=== PATIENT | male | born 1995 | race Caucasian/White ===

== ENCOUNTER 2024-05-09 16:23 | Emergency (ER) | payer MEDICARE, SELFPAY ==
[2024-05-09 16:50] VITALS: BP 144/87; PULSE 62; RESP 20; TEMP 36.9; O2SAT 95; BMI 36.1
[2024-05-09 16:58] LABS: Apearance,Urine Clear (Clear); Blood, Urine Negative (Negative); Color,Urine Yellow (Yellow); Glucose,Urine (UA) Negative (Negative); Ketones,Urine TRACE (Negative); Protein,Urine Negative (Negative); Specific Gravity, Urine 1.025 (1.005-1.030)
[2024-05-09 16:59] LABS: Bilirubin,Urine Negative (Negative)
[2024-05-09 17:00] LABS: UTC Leukocyte Esterase,Urine Negative (Negative); UTC Nitrate,Urine Negative (Negative); Urobilinogen,Urine 4 EU/dl (0.2)
--- NOTE | 2024-05-09 17:12 | EXP.UTC ---
Discharge Plan Referrals Follow up/Referrals: Provider,Referral, [Primary Care Provider] - See instructions Activity Restrictions/Add. Instructions Additional Instructions/Restrictions: Follow up with your Family Doctor the first of next week to request the results of your testing here today and treatment if needed Avoid sex until testing back and negative Return if needed Clinical Impressions Clinical Impression: Penile lesion Instructions Patient Instructions: Chlamydia: The Silent STD, How to Detect and Treat STDs Print Language Print Language: Albanian Discharge ED Provider: Aixa Merritt [facility] [place] HPI General Stated complaint: penis painful Mode of Arrival: Ambulatory Source of Information: Patient Limitations: No Limitations Time Seen by Provider: 05/09/24 17:12 Description of Symptoms (Recalled from Triage Doc. by RN): PATIENT C/O BURNING AND DISCHARGE TO GENITAL AREA SINCE THIS MORNING HEENT Symptoms (Recalled from RN notes): No Resp Symptoms (Recalled from RN notes): No Skin Symptoms (Recalled from RN notes): No MS Symptoms (Recalled from RN notes): No Functional Status (Recalled from RN notes): WNL History of Present Illness Provider Complaint: Patient states that him and his woman has been having lots of sex 3-4 times a day States not sure if he may have a friction burn on his penis but he has a open sore there and wanted to get it checked States after having sex earlier today he noticed a greenish colored discharge not sure if it was from him or his woman Related Data Allergies Allergy/AdvReac Type Severity Reaction Status Date / Time No Known Allergies Allergy Verified 05/09/24 17:11 Worker's Comp Is this a Worker's Comp case?: No [facility] Disclaimer: The information contained in this section may have been updated after the patient was seen, as this information can be updated by other users. Medical History (Updated 05/09/24 @ 17:18 by Aixa Merritt APRN) Anxiety Migraine Social History Smoking Status: Unknown if ever smoked alcohol intake: never current occupational status: other Travel in the last 8 weeks: None ROS Obtained: Yes All systems reviewed & no additional complaints except as documented and Yes Systems reviewed as appropriate & no additional complaints except as documented Constitutional Constitutional: Reports system reviewed and no additional complaints, except as documented and Reports as per HPI ENT Ears, Nose, Mouth, and Throat: Reports system reviewed and no additional complaints, except as documented and Reports as per HPI Cardiovascular Cardiovascular: Reports system reviewed and no additional complaints, except as documented and Reports as per HPI Respiratory Respiratory: Reports system reviewed and no additional complaints, except as documented and Reports as per HPI Gastrointestinal Gastrointestingal: Reports system reviewed and no additional complaints, except as documented and as per HPI Genitourinary Male Genitourinary: Reports genital lesions (open wound on left side of penis no drainage), Reports penile discharge, Denies urinary frequency and Denies urinary urgency Physical Exam General General appearance: alert and in no apparent distress ENT ENT exam: Present mucous membranes moist Neck Neck exam: Present normal inspection and full ROM Chest Chest inspection: Present normal inspection and symmetric chest wall rise Respiratory Respiratory exam: Present normal lung sounds bilaterally; Absent respiratory distress or wheezes Cardiovascular Cardiovascular exam: Present regular rate, normal rhythm and normal heart sounds Abdominal Exam Abdominal exam: Present soft and normal bowel sounds; Absent distention or tenderness exam: Present other Expanded Exam exam: Present lesions (small open lesion noted on left side of penis no drainage reports discharge this morning no swelling no obvious discharge); Absent penile swelling Male Image: 1. open lesion noted Neurological Exam Neurological exam: Present alert, oriented X3 and normal gait Medical Decision Making Medical Records Screening: Per USPSTF and CDC recommendations, given the prevalence of disease in our region, it is our hospital?s policy to screen for HIV and viral Hepatitis for all patients aged 18 and over and those with ongoing risk factors. Atul Inquiry Pt receiving controlled substance: No Atul was queried for this patient: No Vital Signs: 05/09/24 16:50 Temperature 98.4 F Temperature Source Oral Pulse Rate [Left Brachial] 62 Respiratory Rate 20 Blood Pressure [Left Arm] 144/87 H Blood Pressure Mean [Left Arm] 106 Blood Pressure Source [Left Arm] Automatic Cuff Blood Pressure Position [Left Arm] Sitting 02 Sat by Pulse Oximetry 95 Oxygen Delivery Method Room Air Lab Data Lab Results 05/09/24 16:46: Urine Color Yellow, Urine Appearance Clear, Urine pH 7.0, Ur Specific [place] 1.025, Urine Protein Negative, Urine Glucose (UA) Negative, Urine Ketones Trace, Urine Blood Negative, Urine Nitrate Negative, Urine Bilirubin Negative, Urine Urobilinogen 4, Ur Leukocyte Esterase Negative Orders (Tests/Meds): ORDERS Category Date Time Status HSV 1/2 PCR, (BLOOD/SWAB) Routine Lab 05/09/24 17:01 Ordered
[2024-05-09 17:20] VITALS: BP 144/87; PULSE 62; RESP 20; TEMP 36.9; O2SAT 95
[2024-05-12 19:09] LABS: Neisseria gonorrhoeae, NAA Negative (Negative)
[2024-05-14 07:54] LABS: HSV-1 DNA Negative (Negative); HSV-2 DNA Negative (Negative)
== END 2024-05-09 17:26 | disposition home or self-care (01) ==
LOC: UTC 16:31
PROVIDERS: Emergency Provider Nurse Practitioner
DX: E29.1 Testicular hypofunction (principal)
CPT/HCPCS: 81003; 87491; 87529; 87591; 99213; G0381

== ENCOUNTER 2024-06-04 08:50 | Emergency (ER) | payer MEDICARE, SELFPAY ==
[2024-06-04 09:10] VITALS: BP 144/112; PULSE 79; RESP 16; TEMP 36.8; O2SAT 99; BMI 35.2
--- NOTE | 2024-06-04 09:10 | PC.NURSE ---
DR FENG AT BEDSIDE
--- NOTE | 2024-06-04 09:24 | XR_ITS ---
FINAL REPORT CLINICAL HISTORY: cough, left cp, wheezing FINDINGS: CHEST 2 VIEWS PA AND LATERAL The heart is normal in size. The mediastinum is unremarkable. There is bronchial wall thickening consistent with bronchitis. There is no pneumothorax. IMPRESSION: Bronchial wall thickening consistent with bronchitis. Reviewed, Interpreted and Dictated by Sukh Yap III, MD Transcribed by Katie Taylor Authenticated and [facility]
[2024-06-04 09:30] VITALS: BP 105/88; PULSE 68; O2SAT 95
[2024-06-04] MEDS: BENZONATATE 100MG CAPSULE 100 MG PO (09:35)
[2024-06-04] MEDS: DEXAMETHASONE 4MG TABLET 10 MG PO (09:35)
[2024-06-04] MEDS: IPRATROPIUM/ALBUTEROL 3 ML NEB IH (09:35)
[2024-06-04] MEDS: KETOROLAC 30MG/ML VIAL 30 MG IM (09:35)
--- NOTE | 2024-06-04 10:05 | HMH.EDGENADL ---
Discharge Plan Disposition Patient Disposition: Home, Self-Care Prescriptions Prescriptions: New ibuprofen 800 mg tablet 800 mg PO TID PRN (Reason: pain) 7 Days Qty: 20 0RF benzonatate 100 mg capsule 100 mg PO TID PRN (Reason: cough) 5 Days Qty: 20 0RF albuterol sulfate 90 mcg/actuation HFA aerosol inhaler 4 inh inhalation Q4H PRN (Reason: shortness of breath or wheezing) Qty: 8.5 0RF Rx Instructions: 4 puffs every 4 hours for 48 hours then as needed for shortness of breath or wheezing following Referrals Follow up/Referrals: Provider,MD Kenzie [Primary Care Provider] - See instructions Autumn Ramos MD [Physician] - See instructions Activity Restrictions/Add. Instructions Additional Instructions/Restrictions: Your symptoms today are consistent with a viral upper respiratory infection causing an asthma exacerbation I recommend that you follow-up with our senior web services developer to discuss chronic management of your asthma. Return with any significant shortness of breath or other concerns. There is no evidence of a bacterial infection today that would warrant antibiotics as discussed. Clinical Impressions Clinical Impression: Asthma exacerbation, URI (upper respiratory infection), Strain of chest wall Print Language Print Language: Danish Discharge ED Provider: Yue Wade General Adult HPI General Chief complaint: Upper Respiratory Infection Stated complaint: soa, cough, fatigue Time Seen by Provider: 06/04/24 09:09 Mode of Arrival: Ambulatory Source of Information: Patient Limitations: No Limitations Description of Symptoms (Recalled from ER Triage Doc. by RN): pt c/o a productive cough with brownish-green sputum, SOA, and rib pain with coughing. pt states this has been ongoing x3d. pt denies chest pain. History of Present Illness HPI narrative: Patient is a 28-year-old with history of sports or exercise-induced asthma who presents today with 3 days of cough and what he describes as his throat closing up in the middle of coughing spells and some wheezing and some left-sided chest discomfort associated with cough. No exertional symptoms no diaphoresis no history of coronary artery disease no significant shortness of breath at the moment. No fevers. He has had increasing changes to sputum. Related Data Previous Rx's ?Medication ?Instructions ?Recorded albuterol sulfate 90 mcg/actuation 4 inh inhalation Q4H PRN shortness 06/04/24 aerosol inhaler of breath or wheezing #8.5 grams benzonatate 100 mg capsule 100 mg PO TID PRN cough 5 days #20 06/04/24 caps ibuprofen 800 mg tablet 800 mg PO TID PRN pain 7 days #20 06/04/24 tabs Allergies Allergy/AdvReac Type Severity Reaction Status Date / Time No Known Allergies Allergy Verified 06/04/24 09:36 [facility] Disclaimer: The information contained in this section may have been updated after the patient was seen, as this information can be updated by other users. Medical History (Updated 06/04/24 @ 11:03 by Yue Wade MD) Anxiety Migraine Social History (Updated 05/09/24 @ 17:18 by Aixa Merritt APRN) Smoking Status: Never smoker alcohol intake: never current occupational status: other Travel in the last 8 weeks: None ROS Obtained: Yes All systems reviewed & no additional complaints except as documented Physical Exam General General appearance: alert and in no apparent distress Chest Chest inspection: Present normal inspection; Absent symmetric chest wall rise Respiratory Respiratory exam: Present normal lung sounds bilaterally and other (Oxygen saturation is 99% room air normal respiratory effort speaking in full sentences); Absent respiratory distress, wheezes or stridor Cardiovascular Cardiovascular exam: Present regular rate and normal rhythm Neurological Exam Neurological exam: Present alert and oriented X3 Medical Decision Making Medical Records Screening: Per USPSTF and CDC recommendations, given the prevalence of disease in our region, it is our hospital?s policy to screen for HIV and viral Hepatitis for all patients aged 18 and over and those with ongoing risk factors. Atul Inquiry Pt receiving controlled substance: No Vital Signs: 06/04/24 09:10 06/04/24 09:30 Temperature 98.3 F Temperature Source Oral Pulse Rate 68 Pulse Rate [Left] 79 Respiratory Rate 16 Blood Pressure 105/88 L Blood Pressure [Right Arm] 144/112 H Blood Pressure Mean [Right Arm] 122 Blood Pressure Source [Right Arm] Automatic Cuff Blood Pressure Position [Right Arm] Sitting 02 Sat by Pulse Oximetry 99 95 Oxygen Delivery Method Room Air Orders (Tests/Meds): ED MEDICATIONS Generic Name Dose Route Start Last Admin Trade Name Freq PRN Reason Stop Dose Admin Benzonatate 100 mg 06/04/24 09:30 06/04/24 09:35 Benzonatate 100mg Capsule PO 07/04/24 09:29 100 mg ONCE KRYSTAL Administration Discontinued Medications Generic Name Dose Route Start Last Admin Trade Name Grace PRN Reason Stop Dose Admin Albuterol/Ipratropium 3 ml 06/04/24 09:24 06/04/24 09:35 Ipratropium/Albuterol 3 Ml Neb IH 06/04/24 09:25 3 ml ONCE ONE Administration Dexamethasone 10 mg 06/04/24 09:24 06/04/24 09:35 Dexamethasone 4mg Tablet PO 06/04/24 09:25 10 mg ONCE ONE Administration Ketorolac Tromethamine 30 mg 06/04/24 09:24 06/04/24 09:35 Ketorolac 30mg/Ml Vial IM 06/04/24 09:25 30 mg ONCE ONE Administration ORDERS Category Date Time Status Chest XR 2 view (NOT portable) [XR chest 2V] Stat Exams 06/04/24 09:24 Taken Medical Decision Narrative: Patient was above history and physical. Respiratory effort is normal two-view chest x-ray was performed to rule out pneumonia which I personally interpreted shows no acute cardiopulmonary emergency or abnormality such as a lobar pneumonia. Additionally patient is outside of any window for intervention from a viral standpoint so no need to determine the exact etiology of this. Chest x-ray was performed which I personally interpreted shows no dense consolidation or acute abnormalities. On reassessment patient felt much better particular the breathing treatment saying that his throat opened up and the pressure is significantly improved. He likely has chronic asthma and has an asthma exacerbation with his reactivity to beta agonist inhaler and with his history. Steroids also were given with improvement. Symptomatic medications prescribed patient advised to follow-up with pulmonology and discharged in stable condition with return precautions emphasized. Critical Care Critical Care Time Critical Care Time: No
[2024-06-04 11:03] VITALS: BP 105/88; PULSE 68; RESP 16; TEMP 36.8; O2SAT 95
== END 2024-06-04 11:07 | disposition home or self-care (01) ==
LOC: UTC 08:56 → ER 09:00
PROVIDERS: Emergency Provider Student in an Organized Health Care Education/Training Program
DX: J45.901 Unspecified asthma with (acute) exacerbation (principal); J06.9 Acute upper respiratory infection, unspecified; S29.011A Strain of muscle and tendon of front wall of thorax, initial encounter; R05.9 Cough, unspecified; R06.02 Shortness of breath; R07.82 Intercostal pain; R09.3 Abnormal sputum
CPT/HCPCS: 71046; 96372; 99283; J1885; J7620; J8540

== ENCOUNTER 2024-08-08 00:35 | Emergency (ER) | payer MEDICARE, SELFPAY ==
[2024-08-08 00:35] VITALS: BP 148/99; PULSE 106; RESP 16; TEMP 36.8; O2SAT 96; BMI 35.4
--- NOTE | 2024-08-08 00:37 | XR_ITS ---
PROCEDURE INFORMATION: Exam: XR Chest Exam date and time: 08/08/2024 12:33 AM Age: 28 years old Clinical indication: Cough; Additional info: Cp SOA flu like symptoms TECHNIQUE: Imaging protocol: Radiologic exam of the chest. Views: 2 views. COMPARISON: CR XR CHEST 2V 06/04/2024 9:22 AM FINDINGS: Lungs: No evidence of acute pulmonary disease or infiltrates Pleural spaces: No large effusion or pneumothorax. Heart/Mediastinum: No evidence of mediastinal widening or cardiac silhouette enlargement; the mediastinum and heart appear within normal limits for contour and size. Bones/joints: No evidence of acute osseous abnormalities within the visualized portions of the thoracic spine and ribs. Osseous structures appear appropriate for patient age. IMPRESSION: No dense parenchymal consolidation, pleural effusion, or pneumothorax.
--- NOTE | 2024-08-08 00:41 | PC.NURSE ---
Report given to Allison DONOVAN
[2024-08-08 00:42] LABS: Coronavirus 19, PCR Not Detected (NotDetected); Influenza B, PCR Not Detected (NotDetected)
[2024-08-08] MEDS: ACETAMINOPHEN 500MG TAB 1000 MG PO (00:47)
[2024-08-08] MEDS: ONDANSETRON 4MG/2ML VIAL 4 MG IV (00:47)
[2024-08-08] MEDS: KETOROLAC 30MG/ML VIAL 30 MG IV (00:48)
--- NOTE | 2024-08-08 00:55 | ED_ITS ---
Discharge Plan Disposition Patient Disposition: Home, Self-Care Prescriptions Prescriptions: New methocarbamol 500 mg tablet 500 mg PO Q6H PRN (Reason: pain) Qty: 30 0RF benzonatate 100 mg capsule 100 mg PO Q6H PRN (Reason: cough) Qty: 30 0RF No Action ibuprofen 800 mg tablet 800 mg PO TID PRN (Reason: pain) 7 Days Qty: 20 0RF benzonatate 100 mg capsule 100 mg PO TID PRN (Reason: cough) 5 Days Qty: 20 0RF albuterol sulfate 90 mcg/actuation HFA aerosol inhaler 4 inh inhalation Q4H PRN (Reason: shortness of breath or wheezing) Qty: 8.5 0RF Rx Instructions: 4 puffs every 4 hours for 48 hours then as needed for shortness of breath or wheezing following Referrals Follow up/Referrals: Provider,Referral, MD [Primary Care Provider] - See instructions Activity Restrictions/Add. Instructions Additional Instructions/Restrictions: Please follow-up with your primary care provider. Please return to the emergency department if you develop any new or worsening symptoms or become conc erned for your health. Clinical Impressions Clinical Impression: Influenza A, Asthma exacerbation Print Language Print Language: Mongolian Discharge ED Provider: Jason Perez General Adult HPI General Chief complaint: Shortness of Breath/Dyspnea Stated complaint: Cough, congestion Time Seen by Provider: 08/08/24 00:37 Mode of Arrival: EMS Source of Information: Patient Limitations: No Limitations Description of Symptoms (Recalled from ER Triage Doc. by RN): Pt complaining of SOA, cough, and chills for 4 days. Multiple family members in home positive for flu. History of Present Illness HPI narrative: 28-year-old male with history of exercise-induced asthma presents for worsening cough congestion shortness of breath subjective fevers at home for the last 4 days. Multiple members of the family at home have the flu. He presents tonight via EMS because he got severely winded with right chest pain with coughing. Related Data Previous Rx's ?Medication ?Instructions ?Recorded albuterol sulfate 90 mcg/actuation 4 inh inhalation Q4H PRN shortness 06/04/24 aerosol inhaler of breath or wheezing #8.5 grams benzonatate 100 mg capsule 100 mg PO TID PRN cough 5 days #20 06/04/24 caps ibuprofen 800 mg tablet 800 mg PO TID PRN pain 7 days #20 06/04/24 tabs benzonatate 100 mg capsule 100 mg PO Q6H PRN cough #30 caps 08/08/24 methocarbamol 500 mg tablet 500 mg PO Q6H PRN pain #30 tabs 08/08/24 Allergies Allergy/AdvReac Type Severity Reaction Status Date / Time No Known Allergies Allergy Verified 06/04/24 09:36 [facility] Disclaimer: The information contained in this section may have been updated after the patient was seen, as this information can be updated by other users. Medical History (Updated 08/08/24 @ 02:06 by Jason Perez MD) Anxiety Migraine Social History (Updated 05/09/24 @ 17:18 by Aixa Merritt APRN) Smoking Status: Never smoker alcohol intake: never current occupational status: other Travel in the last 8 weeks: None ROS Obtained: Yes All systems reviewed & no additional complaints except as documented Physical Exam General General appearance: alert and in no apparent distress Head Head exam: atraumatic and normocephalic Eye Eye exam: Present normal appearance, PERRL and EOMI ENT ENT exam: Present normal oropharynx and normal external ear exam Neck Neck exam: Present normal inspection and full ROM Chest Chest inspection: Present normal inspection and symmetric chest wall rise; Absent tenderness Respiratory Respiratory exam: Present normal lung sounds bilaterally; Absent respiratory distress Cardiovascular Cardiovascular exam: Present regular rate and normal rhythm Abdominal Exam Abdominal exam: Present soft; Absent distention, tenderness or guarding Extremities Exam Extremities exam: Present normal inspection; Absent edema or joint swelling Back Exam Back exam: Present normal inspection; Absent tenderness Neurological Exam Neurological exam: Present alert and oriented X3; Absent motor sensory deficit Psychiatric Psychiatric exam: Present normal affect and normal mood Skin Skin exam: Present warm, dry and normal color Lymphatic Lymphatic Findings: no adenopathy Medical Decision Making Medical Records Medical records reviewed: Yes I reviewed the patient's medical records. Screening: Per USPSTF and CDC recommendations, given the prevalence of disease in our region, it is our hospital?s policy to screen for HIV and viral Hepatitis for all patients aged 18 and over and those with ongoing risk factors. Atul Inquiry Pt receiving controlled substance: No Atul was queried for this patient: No Vital Signs: 08/08/24 00:35 08/08/24 01:00 08/08/24 01:19 Temperature 98.3 F Temperature Source Oral Pulse Rate 78 82 Pulse Rate [Right Radial] 106 H Respiratory Rate 16 22 23 Blood Pressure 133/94 H 133/94 H Blood Pressure [Right Arm] 148/99 H Blood Pressure Mean [Right Arm] 115 Blood Pressure Source Automatic Cuff Blood Pressure Source [Right Arm] Automatic Cuff 02 Sat by Pulse Oximetry 96 93 L 93 L Oxygen Delivery Method Room Air Room Air Lab Data Lab results reviewed: Yes I reviewed the patient's lab results. Lab Results 08/08/24 00:35: SARS-CoV-2 (PCR) Not detected, Influenza A Untype (PCR) Detected A, Influenza Type B (PCR) Not detected Orders (Tests/Meds): ED MEDICATIONS Generic Name Dose Route Start Last Admin Trade Name Freq PRN Reason Stop Dose Admin Albuterol Sulfate 2 puff 08/08/24 01:49 08/08/24 02:01 Albuterol-Hfa 90mcg/Puff Inhaler 8gm IH 09/07/24 01:48 1 puff Q4HP PRN Administration Shortness Of Breath Dexamethasone 10 mg 08/08/24 02:06 Dexamethasone 4mg Tablet PO 08/08/24 02:07 ONCE ONE Discontinued Medications Generic Name Dose Route Start Last Admin Trade Name Freq PRN Reason Stop Dose Admin Acetaminophen 1,000 mg 08/08/24 00:37 08/08/24 00:47 Acetaminophen 500mg Tab PO 08/08/24 00:38 1,000 mg ONCE ONE Administration Ketorolac Tromethamine 30 mg 08/08/24 00:37 08/08/24 00:48 Ketorolac 30mg/Ml Vial IV 08/08/24 00:38 30 mg ONCE ONE Administration Miscellaneous 1 unit 08/08/24 01:49 08/08/24 02:01 Aerochamber/Optihaler MC 08/08/24 01:50 1 unit ONCE ONE Administration Ondansetron HCl 4 mg 08/08/24 00:38 08/08/24 00:47 Ondansetron 4mg/2ml Vial IV 08/08/24 00:39 4 mg ONCE ONE Administration ORDERS Category Date Time Status CXR 2 view (NOT portable) [XR chest 2V] Stat Exams 08/08/24 00:37 Completed HIV Combo Routine Lab 08/08/24 00:42 Ordered Hepatitis C Ab Qual. W/ RFX Routine Lab 08/08/24 00:42 Ordered Rapid PCR Covid and Flu A/B Stat Lab 08/08/24 00:35 Completed Tissue Perfus/Sepsis Re-Eval Sepsis Re-Evaluation Performed: Yes Date Performed: 08/08/24 Time Performed: 02:06 Medical Decision Narrative: 28-year-old male with history of exercise-induced asthma presents via EMS for cough congestion fevers at home, multiple flu exposures.. History was obtained via interactive discussion with patient, chart review, EMS. On arrival, patient is [afebrile, hemodynamically stable, satting appropriately, alert, oriented x4, GCS 15], moving all extremities spontaneously. Full physical exam performed and significant for clear lungs bilaterally after EMS DuoNeb. Differential includes but is not limited to flu, pneumonia pneumothorax musculoskeletal rib pain. Patient was given DuoNeb and IV fluid by EMS, given Tylenol Toradol and Zofran here in ED for symptomatic management and correction of underlying abnormalities. Workup initiated including 2 view chest x-ray, COVID flu swab. On re-evaluation, patient [remains afebrile, HD stable.] Now with trace wheezing bilaterally. Laboratory workup independently interpreted by me and significant for positive influenza A. Imaging independently interpreted by me and significant for clear lungs bilaterally without focal opacity or evidence of rib fracture or pneumothorax. See radiology read for full review of final results. Initiation of Tamiflu was considered, but deemed unnecessary due to 4 days of symptom. Given patient history, exam and workup, patient's presentation most likely represents acute influenza infection with mild asthma exacerbation. Patient was given a dose of Decadron in the ER and discharged with a albuterol inhaler. He was given strict return precautions. Patient was discharged in stable condition. Patient flagged positive for sepsis. However, no indication of acute bacterial infection, no indication for IV antibiotics or IV fluids at this time. Procedures Risk/Benefits of Procedure(s) Were Explained: Yes Critical Care Critical Care Time Critical Care Time: No
[2024-08-08 01:00] VITALS: BP 133/94; PULSE 78; RESP 22; O2SAT 93
[2024-08-08 01:19] VITALS: BP 133/94; PULSE 82; RESP 23; O2SAT 93
--- NOTE | 2024-08-08 01:20 | PC.NURSE ---
Pt sitting up in bed on phone. No needs voiced at this time.
[2024-08-08 01:39] LABS: Influenza A, PCR Detected (NotDetected)
[2024-08-08] MEDS: ALBUTEROL-HFA 90MCG/PUFF INHALER 8GM 2 PUFF IH (02:01)
[2024-08-08] MEDS: AEROCHAMBER/OPTIHALER 1 UNIT MC (02:01)
[2024-08-08] MEDS: DEXAMETHASONE 4MG TABLET 10 MG PO (02:08)
[2024-08-08 02:11] VITALS: BP 137/96; PULSE 73; RESP 20; TEMP 36.8; O2SAT 96
== END 2024-08-08 02:11 | disposition home or self-care (01) ==
PROVIDERS: Emergency Provider Emergency Medicine
DX: J10.1 Influenza due to other identified influenza virus with other respiratory manifestations (principal); J45.901 Unspecified asthma with (acute) exacerbation; R06.02 Shortness of breath; R05.9 Cough, unspecified; R50.9 Fever, unspecified; R09.81 Nasal congestion; R07.89 Other chest pain; Z20.828 Contact with and (suspected) exposure to other viral communicable diseases
CPT/HCPCS: 71046; 87636; 96374; 96375; 99283; J1885; J2405; J8540

== ENCOUNTER 2024-09-17 13:50 | Outpatient (CLI) | payer MEDICARE, SELFPAY ==
[2024-09-17 18:58] LABS: Basophils % 0.2 % (0.1-2.0); Eosinophils # 0.1 K/mm3 (0.0-0.4); Eosinophils % 2.1 % (0.1-12.0); Hemoglobin 15.1 g/dL (14.1-18.0); Lymphocytes # 1.8 K/mm3 (0.7-4.5); Lymphocytes % 32.8 % (10-50); Mean Corpuscular HGB Conc 34.3 g/dL (31.8-35.4); Mean Corpuscular Hemoglobin 29.3 pg (27.0-31.2); Mean Corpuscular Volume 85.4 fl (80-94); Mean Platelet Volume 11.1 fl (7.4-10.4); Monocytes # 0.5 K/mm3 (0.1-1.0); Monocytes % 8.4 % (1.7-9.3); Neutrophils % 56.3 % (37.0-80.0); Platelet Count 216 K/mm3 (142-424); Red Blood Count 5.15 M/mm3 (4.60-6.20); White Blood Count 5.4 K/mm3 (4.8-10.8)
[2024-09-17 19:46] LABS: Albumin Level 4.7 g/dl (3.5-5.0); Chloride 106 mmol/L (98-107); Sodium 139 mmol/L (136-145)
[2024-09-17 19:47] LABS: Potassium 4.4 mmoL/L (3.5-5.1)
[2024-09-17 19:49] LABS: Alanine Aminotransferase 45 U/L (12-78); Albumin/Globulin Ratio 1.9 (1.1-1.8); Alkaline Phosphatase 83 U/L (38-126); Anion Gap 12.4 mEq/L (5-15); Aspartate Amino Transferase 32 U/L (17-59); Bilirubin,Total 0.4 mg/dl (0.2-1.3); Blood Urea Nitrogen 9 mg/dl (9-20); Carbon Dioxide 25 mmol/L (22.0-30.0); Cholesterol 177 mg/dl (140-200); Estimated Glomerular Filt Rate 114 ml/min (>60); GFR (African American) 138 ML/MIN (>60); Globulin 2.5 g/dL (1.3-3.2); Total Protein,Serum 7.2 g/dl (6.3-8.2); Triglycerides 116 mg/dl (30-150); VLDL Cholesterol 23 mg/dL (0-40)
[2024-09-17 19:50] LABS: Calcium 9.7 mg/dl (8.4-10.2); Glucose 76 mg/dl (74-100); HDL Cholesterol 44 mg/dl (40-60)
[2024-09-17 20:58] LABS: 25-OH Vitamin D, Total 27.1 ng/mL (30-100)
== END 2024-09-17 23:59 | disposition home or self-care (01) ==
LOC: LAB.DROPOF 09-18 13:36
PROVIDERS: PCP Family Medicine; Visit Provider Family Medicine
DX: Z00.00 Encounter for general adult medical examination without abnormal findings (principal); R53.83 Other fatigue; R63.2 Polyphagia; Z13.1 Encounter for screening for diabetes mellitus; R79.9 Abnormal finding of blood chemistry, unspecified
CPT/HCPCS: 80053; 80061; 82306; 83036; 84443; 85025

== ENCOUNTER 2024-09-19 07:11 | Emergency (ER) | payer MEDICARE, SELFPAY ==
[2024-09-19 07:13] VITALS: BP 137/105; PULSE 101; O2SAT 95
--- NOTE | 2024-09-19 07:17 | XR_ITS ---
FINAL REPORT CLINICAL HISTORY: fall, knee pain COMPARISON: None FINDINGS: LEFT KNEE 3 views of the left knee were obtained. There is no acute fracture or dislocation. There are postoperative changes from ACL reconstruction. Mild degenerative changes are noted. There is no evidence of joint effusion. IMPRESSION: No acute findings. Reviewed, Interpreted and Dictated by Nidia Melgar MD Transcribed by Yesenia Mendenhall Authenticated and [facility]
--- NOTE | 2024-09-19 07:18 | HMH.EDGENADL ---
Discharge Plan Disposition Patient Disposition: Home, Self-Care Condition: Fair Prescriptions Prescriptions: New naproxen sodium 550 mg tablet 550 mg PO BID PRN (Reason: pain) Qty: 14 0RF acetaminophen 500 mg capsule 1,000 mg PO Q6H PRN (Reason: pain) Qty: 30 0RF methocarbamol 1,000 mg tablet 1,000 mg PO Q8H PRN (Reason: muscle spasm) Qty: 30 0RF lidocaine 5 % adhesive patch,medicated 1 patch topical DAILY Qty: 15 0RF Rx Instructions: leave on most painful area for up to 12 hrs No Action tizanidine 4 mg capsule 4 mg PO TID PRN (Reason: muscle spasticity) Qty: 30 0RF naproxen 500 mg tablet 500 mg PO BID PRN (Reason: pain) Qty: 60 1RF Referrals Follow up/Referrals: Julian Davison DO [Staff Physician] - See instructions Provider,Referral, [Referring] - See instructions Activity Restrictions/Add. Instructions Additional Instructions/Restrictions: Wear knee brace Clinical Impressions Clinical Impression: Injury of knee, left Instructions Patient Instructions: Sprain Print Language Print Language: Albanian Discharge ED Provider: Lilly Gifford General Adult HPI General Chief complaint: Extremity Injury, Lower Stated complaint: Left Knee pain Time Seen by Provider: 09/19/24 07:43 History of Present Illness HPI narrative: Patient is a 28-year-old with past medical history significant for prior ACL MCL reconstruction of the left knee without hardware who presents to the emergency department with left knee pain. Patient was working at his job when his knee was caught and he inverted it. Patient developed immediate sharp pain. He was able to ambulate on it afterwards. Symptoms improved with a warm bath. This morning patient's knee was more swollen than yesterday and he was having difficulty with ambulation. No fevers chills did not hit head or lose consciousness with the fall. Notes numbness tingling in his left foot Related Data Previous Rx's ?Medication ?Instructions ?Recorded naproxen 500 mg tablet 500 mg PO BID PRN pain #60 tabs 09/17/24 tizanidine 4 mg capsule 4 mg PO TID PRN muscle spasticity 09/17/24 #30 caps acetaminophen 500 mg capsule 1,000 mg (2 x 500 mg) PO Q6H PRN 09/19/24 pain #30 caps lidocaine 5 % topical patch 1 patch topical DAILY #15 ea 09/19/24 methocarbamol 1,000 mg tablet 1,000 mg PO Q8H PRN muscle spasm 09/19/24 #30 tabs naproxen sodium 550 mg tablet 550 mg PO BID PRN pain #14 tabs 09/19/24 Allergies Allergy/AdvReac Type Severity Reaction Status Date / Time No Known Allergies Allergy Verified 09/19/24 07:40 [facility] Disclaimer: The information contained in this section may have been updated after the patient was seen, as this information can be updated by other users. Medical History (Updated 09/19/24 @ 07:49 by Lilly Gifford MD) Back pain Asthma exacerbation Penile lesion URI (upper respiratory infection) Strain of chest wall Influenza A Anxiety Migraine Social History Smoking Status: Never smoker alcohol intake: never current occupational status: other Travel in the last 8 weeks: None Have you lived/traveled outside US in past 30 days?: No Contact w/someone who lives/traveled outside US past 30 days?: No Exposure to someone with infectious disease in past 14 days?: No Do you have a fever (greater than 100.4 F or 38 C)?: No Have you tested positive for COVID-19: No Exposed to someone with COVID-19 in past 14 days?: No Do you have a sore throat?: No Do you have a cough?: No Do you have any weakness?: No Do you have any diarrhea?: No Are you experiencing any unusual bleeding?: No Do you have any muscle aches/pain?: No Do you have any abdominal pain?: No Are you experiencing loss of taste or smell?: No ROS Obtained: Yes All systems reviewed & no additional complaints except as documented Physical Exam General General appearance: alert and in no apparent distress Head Head exam: atraumatic and normocephalic Eye Eye exam: Present normal appearance and PERRL ENT ENT exam: Present normal exam Neck Neck exam: Present normal inspection and full ROM Chest Chest inspection: Present normal inspection and symmetric chest wall rise Respiratory Respiratory exam: Absent respiratory distress or accessory muscle use Cardiovascular Cardiovascular exam: Present regular rate and normal rhythm Abdominal Exam Abdominal exam: Absent distention or tenderness Extremities Exam Extremities exam: Present tenderness (Left knee, mild prepatellar effusion, full range of motion of the left knee without erythema or warmth, neurovascularly intact distal to injury left lower extremity) and other (Left knee: negative anterior posterior drawer test, laxity with valgus stress) Neurological Exam Neurological exam: Present alert and oriented X3; Absent motor sensory deficit Medical Decision Making Medical Records Screening: Per USPSTF and CDC recommendations, given the prevalence of disease in our region, it is our hospital?s policy to screen for HIV and viral Hepatitis for all patients aged 18 and over and those with ongoing risk factors. Atul Inquiry Pt receiving controlled substance: No Vital Signs: 09/19/24 07:13 09/19/24 07:20 09/19/24 07:32 Temperature 98.1 F Temperature Source Oral Pulse Rate 101 H 77 Pulse Rate [Left] 79 Respiratory Rate 18 Blood Pressure 137/105 H 147/89 H Blood Pressure [Right Arm] 137/105 H Blood Pressure Mean 119 108 Blood Pressure Mean [Right Arm] 115 Blood Pressure Source [Right Arm] Automatic Cuff Blood Pressure Position [Right Arm] Sitting 02 Sat by Pulse Oximetry 95 96 98 Oxygen Delivery Method Room Air 09/19/24 07:49 Temperature Temperature Source Pulse Rate 66 Pulse Rate [Left] Respiratory Rate Blood Pressure 127/81 Blood Pressure [Right Arm] Blood Pressure Mean 90 Blood Pressure Mean [Right Arm] Blood Pressure Source [Right Arm] Blood Pressure Position [Right Arm] 02 Sat by Pulse Oximetry 95 Oxygen Delivery Method Orders (Tests/Meds): ED MEDICATIONS Discontinued Medications Generic Name Dose Route Start Last Admin Trade Name Freq PRN Reason Stop Dose Admin Acetaminophen 1,000 mg 09/19/24 07:18 09/19/24 07:25 Acetaminophen 500mg Tab PO 09/19/24 07:19 1,000 mg ONCE ONE Administration Lidocaine 1 each 09/19/24 07:18 09/19/24 07:25 Lidocaine 5% Transdermal Patch TP 09/19/24 07:19 1 each ONCE ONE Administration Methocarbamol 1,000 mg 09/19/24 07:19 09/19/24 07:25 Methocarbamol 500mg Tablet PO 09/19/24 07:20 1,000 mg ONCE ONE Administration Naproxen 500 mg 09/19/24 07:19 09/19/24 07:25 Naproxen 500mg Tablet PO 09/19/24 07:20 500 mg ONCE ONE Administration Ondansetron HCl 4 mg 09/19/24 08:16 09/19/24 08:18 Ondansetron 4mg Odt SL 09/19/24 08:17 4 mg ONCE ONE Administration Oxycodone HCl 5 mg 09/19/24 07:19 09/19/24 07:25 Oxycodone 5mg Immediate Release Tablet PO 09/19/24 07:20 5 mg ONCE ONE Administration ORDERS Category Date Time Status Knee XR left 3 views [XR knee LT 3V] Stat Exams 09/19/24 07:17 Completed Medical Decision Narrative: In summary, this 28-year-old male presents to the emergency department today with traumatic left knee pain. On initial evaluation patient is hemodynamically stable saturating appropriately on room air afebrile no acute. Differential diagnosis includes but is not limited to acute fracture dislocation tendon or ligamentous injury neurovascular injury. Based on these concerns, I ordered left knee x-ray. Lower suspicion for septic arthritis as no prior hardware in this knee no warmth or redness overlying knee. Intact sensation and PT and DP pulses distal to injury. EMILIA wnl ankle: 190/brachial: 140 low suspicion for arterial injury. Patient received naproxen Tylenol Robaxin lidocaine patch and oxycodone for treatment. XR personally interpreted demonstrates no acute fracture or dislocation. History exam most consistent with ligamentous injury. On reassessment has improvement of pain. Patient was placed in a knee immobilizer instructed to keep Dannie wrap to prevent swelling and multimodal pain management. Outpatient referral to orthopedic surgery provided. Critical Care Critical Care Time Critical Care Time: No
[2024-09-19 07:20] VITALS: BP 147/89; PULSE 77; O2SAT 96
[2024-09-19] MEDS: METHOCARBAMOL 500MG TABLET 1000 MG PO (07:25)
[2024-09-19] MEDS: OXYCODONE 5MG IMMEDIATE RELEASE TABLET 5 MG PO (07:25)
[2024-09-19] MEDS: NAPROXEN 500MG TABLET 500 MG PO (07:25)
[2024-09-19] MEDS: ACETAMINOPHEN 500MG TAB 1000 MG PO (07:25)
[2024-09-19] MEDS: LIDOCAINE 5% TRANSDERMAL PATCH 1 EACH TP (07:25)
[2024-09-19 07:32] VITALS: BP 137/105; PULSE 79; RESP 18; TEMP 36.7; O2SAT 98; BMI 34.0
[2024-09-19 07:49] VITALS: BP 127/81; PULSE 66; O2SAT 95
--- NOTE | 2024-09-19 08:14 | PC.NURSE ---
I rounded on the pt. He states he does not like the way the oxycodone is making him feel. He states he feels hot, his eyes are watering and he feels nauseated. I reported this to Dr. Acosta. no needs voiced. call tana in reach.
[2024-09-19] MEDS: ONDANSETRON 4MG ODT 4 MG SL (08:18)
[2024-09-19 08:36] VITALS: BP 140/84; PULSE 68; O2SAT 97
[2024-09-19 08:47] VITALS: BP 140/84; PULSE 81; RESP 16; TEMP 36.6; O2SAT 100
== END 2024-09-19 08:48 | disposition home or self-care (01) ==
PROVIDERS: Emergency Provider Student in an Organized Health Care Education/Training Program; PCP Family Medicine
DX: S80.912A Unspecified superficial injury of left knee, initial encounter (principal); W23.0XXA Caught, crushed, jammed, or pinched between moving objects, initial encounter
CPT/HCPCS: 73562; 99283; Q0162

== ENCOUNTER 2024-09-28 00:29 | Emergency (ER) | payer MEDICARE, SELFPAY ==
[2024-09-28 00:35] VITALS: BP 159/106; PULSE 82; RESP 16; TEMP 36.9; O2SAT 98; BMI 24.6
--- NOTE | 2024-09-28 00:49 | XR_ITS ---
PROCEDURE INFORMATION: Exam: XR Right Tibia and Fibula Exam date and time: 09/28/2024 12:57 AM Age: 28 years old Clinical indication: Injury or trauma; Other: Football injury; Sprain or strain; Patella or knee; Right; Additional info: R knee pain football injury lateral and medial ttp TECHNIQUE: Imaging protocol: Radiologic exam of the right tibia and fibula. Views: 2 views. COMPARISON: CR XR TIBIA FIBULA RT 2V 09/28/2024 12:57 AM FINDINGS: Bones/joints: The tibia and fibula are intact. No acute fracture. The knee and ankle are normally aligned. Soft tissues: Normal. IMPRESSION: No acute findings.
--- NOTE | 2024-09-28 00:49 | XR_ITS ---
PROCEDURE INFORMATION: Exam: XR Right Knee Exam date and time: 09/28/2024 12:57 AM Age: 28 years old Clinical indication: Injury or trauma; Other: Football injury; Sprain or strain; Patella or knee; Right; Additional info: R knee pain football injury lateral and medial ttp TECHNIQUE: Imaging protocol: Radiologic exam of the right knee. Views: 4 or more views. COMPARISON: CR XR TIBIA FIBULA RT 2V 09/28/2024 12:57 AM FINDINGS: Bones/joints: There is a moderate joint effusion present. Alignment is normal. There are [id number] tricompartment degenerative changes present. Findings are present consistent with prior ACL repair. No acute fracture is evident. Soft tissues: Normal. IMPRESSION: Moderate joint effusion. No acute fracture. Further evaluation with CT or MR could be performed in order to evaluate for a radiographically occult acute fracture.
--- NOTE | 2024-09-28 00:56 | PC.NURSE ---
Rad at bedside
[2024-09-28] MEDS: KETOROLAC 30MG/ML VIAL 15 MG IM (01:07)
[2024-09-28] MEDS: OXYCODONE 5MG IMMEDIATE RELEASE TABLET 5 MG PO (01:07)
[2024-09-28] MEDS: ACETAMINOPHEN 500MG TAB 1000 MG PO (01:07)
--- NOTE | 2024-09-28 01:22 | ED_ITS ---
Discharge Plan Disposition Patient Disposition: Home, Self-Care Condition: Good Prescriptions Prescriptions: No Action No Known Home Medications Referrals Follow up/Referrals: Julian aDvison DO [Staff Physician] - See instructions (R knee injury and swelling) Provider,Referral, [Referring] - See instructions Activity Restrictions/Add. Instructions Additional Instructions/Restrictions: You were evaluated in the ER and are appropriate for discharge at this time. Take Tylenol and ibuprofen if needed for pain do not exceed the recommended dose on the bottle. Drink water and eat a small snack each time you take these medications to avoid side effects. Wear the knee immobilizer for support until you see orthopedics. Use the crutches to help you get around. Call Dr. Davison's office for close orthopedic follow up and MRI. Return to the ER with any new, worsening, or otherwise concerning symptoms. Clinical Impressions Clinical Impression: Knee pain, right Print Language Print Language: Swazi Discharge ED Provider: Austen Perez General Adult HPI General Chief complaint: Extremity Injury, Lower Stated complaint: Knee pain Time Seen by Provider: 09/28/24 00:38 Mode of Arrival: EMS Source of Information: Patient Description of Symptoms (Recalled from ER Triage Doc. by RN): Pt advises that he was playing football with his son yesterday and his right knee buckled, he advised he has had pain since then. No relief with muscle relaxers or naproxen History of Present Illness HPI narrative: 28-year-old male presents to the ER with complaints of right knee pain. He reports he was playing football with his son 24 hours ago when he jumped landing in a small hole and had a hyperextension of his right knee. He states his next step his knee then buckled. He is having swelling and stiffening of the knee. He states he has had ACL surgery on that side in the past and this injury feels similar. He is afraid that he tore something. He took tizanidine, methocarbamol, and naproxen in the last 24 hours without relief of symptoms. He is here for further evaluation. No other injuries or complaints. Related Data Home Medications ?Medication ?Instructions ?Recorded ?Confirmed No Known Home Medications 09/28/24 09/28/24 Allergies Allergy/AdvReac Type Severity Reaction Status Date / Time No Known Allergies Allergy Verified 09/28/24 00:54 [facility] Disclaimer: The information contained in this section may have been updated after the patient was seen, as this information can be updated by other users. Medical History Back pain Asthma exacerbation Penile lesion URI (upper respiratory infection) Strain of chest wall Influenza A Anxiety Migraine Social History Smoking Status: Never smoker alcohol intake: never current occupational status: other Travel in the last 8 weeks: None Have you lived/traveled outside US in past 30 days?: No Contact w/someone who lives/traveled outside US past 30 days?: No Exposure to someone with infectious disease in past 14 days?: No Do you have a fever (greater than 100.4 F or 38 C)?: No Have you tested positive for COVID-19: No Exposed to someone with COVID-19 in past 14 days?: No Do you have a sore throat?: No Do you have a cough?: No Do you have any weakness?: No Do you have any diarrhea?: No Are you experiencing any unusual bleeding?: No Do you have any muscle aches/pain?: No Do you have any abdominal pain?: No Are you experiencing loss of taste or smell?: No ROS Obtained: Yes Systems reviewed as appropriate & no additional complaints except as documented Per HPI Physical Exam General General appearance: alert and in no apparent distress Head Head exam: atraumatic and normocephalic Eye Eye exam: Present PERRL and EOMI ENT ENT exam: Present mucous membranes moist Neck Neck exam: Present normal inspection and full ROM Chest Chest inspection: Present symmetric chest wall rise Respiratory Respiratory exam: Absent respiratory distress or stridor Cardiovascular Cardiovascular exam: Present regular rate and normal rhythm Extremities Exam Extremities exam: Present tenderness (Lateral and medial joint lines), normal capillary refill, joint swelling (Right knee) and other (Neurovascularly intact; increased ligamentous laxity with LCL testing beyond what would normally be expected, no other obvious laxity of the ligaments however exam limited secondary to pain); Absent full ROM (Limited range of motion of the right knee secondary to pain, extensor mechanism intact) or edema Neurological Exam Neurological exam: Present alert and oriented X3; Absent motor sensory deficit Psychiatric Psychiatric exam: Present normal affect and normal mood Skin Skin exam: Present warm and dry Medical Decision Making Medical Records Medical records reviewed: Yes I reviewed the patient's medical records. Screening: Per USPSTF and CDC recommendations, given the prevalence of disease in our region, it is our hospital?s policy to screen for HIV and viral Hepatitis for all patients aged 18 and over and those with ongoing risk factors. MR Comment: Patient evaluated by orthopedics on 09/24/2024 for left knee pain. Plan for outpatient MRI which has not yet been completed. Atul Inquiry Pt receiving controlled substance: No Vital Signs: 09/28/24 00:35 Temperature 98.4 F Temperature Source Oral Pulse Rate [Right] 82 Respiratory Rate 16 Blood Pressure [Right Arm] 159/106 H Blood Pressure Mean [Right Arm] 123 Blood Pressure Source [Right Arm] Automatic Cuff Blood Pressure Position [Right Arm] Sitting 02 Sat by Pulse Oximetry 98 Oxygen Delivery Method Room Air Orders (Tests/Meds): ED MEDICATIONS Discontinued Medications Generic Name Dose Route Start Last Admin Trade Name Freq PRN Reason Stop Dose Admin Acetaminophen 1,000 mg 09/28/24 00:50 09/28/24 01:07 Acetaminophen 500mg Tab PO 09/28/24 00:51 1,000 mg ONCE ONE Administration Ketorolac Tromethamine 15 mg 09/28/24 00:50 09/28/24 01:07 Ketorolac 30mg/Ml Vial IM 09/28/24 00:51 15 mg ONCE ONE Administration Oxycodone HCl 5 mg 09/28/24 00:51 09/28/24 01:07 Oxycodone 5mg Immediate Release Tablet PO 09/28/24 00:52 5 mg ONCE ONE Administration ORDERS Category Date Time Status XR knee RT 4V Stat Exams 09/28/24 00:49 Completed XR tibia fibula RT 2V Stat Exams 09/28/24 00:49 Completed Medical Decision Narrative: In summary, this 28-year-old male presents to the emergency department today with right knee pain. On initial evaluation patient is hemodynamically stable, afebrile, tenderness of the right knee in the lateral and medial joint lines with slight LCL laxity compared to the other ligaments, patient does have small joint effusion and limited range of motion but neurovascularly intact, no deformity. Differential diagnosis includes but is not limited to fracture, dislocation, ligamentous injury, meniscus injury. Based on these concerns, I ordered x-rays right knee. Patient received Toradol, Tylenol, one-time dose of oxycodone to help with pain management prior to x-ray. X-rays personally interpreted do not demonstrate obvious acute osseous injury. See radiology read for final interpretation. Radiology read had suggested CT to rule out occult fracture however I have low suspicion for this and have much higher suspicion for soft tissue injury. Patient was placed in knee immobilizer and provided crutches for outpatient management. Patient was given instructions on symptomatic management, follow up instructions, and return precautions for the emergency department. Patient indicated understanding and was discharged in stable condition. Critical Care Critical Care Time Critical Care Time: No
--- NOTE | 2024-09-28 02:51 | PC.NURSE ---
Knee immobilized, pt reports to having crutches at home from previous. Pt ambulates with slow steady gait to the waiting room to await for transportation.
[2024-09-28 02:53] VITALS: BP 128/95; PULSE 92; RESP 14; TEMP 36.7; O2SAT 93
== END 2024-09-28 02:53 | disposition home or self-care (01) ==
PROVIDERS: Emergency Provider Emergency Medicine; PCP Nurse Practitioner
DX: M25.561 Pain in right knee (principal); X58.XXXA Exposure to other specified factors, initial encounter; Y93.61 Activity, american tackle football; Y92.007 Garden or yard of unspecified non-institutional (private) residence as the place of occurrence of the external cause
CPT/HCPCS: 73564; 73590; 96372; 99283; J1885

== ENCOUNTER 2024-10-03 16:16 | Outpatient (CLI) | payer MEDICARE, MEDICAID, SELFPAY ==
--- NOTE | 2024-10-03 16:30 | MR_ITS ---
PROCEDURE INFORMATION: Exam: MR Left Lower Extremity Joint Without Contrast, Knee Exam date and time: 10/03/2024 4:48 PM Age: 28 years old Clinical indication: Left knee pain x 2-3 weeks. Hurt at work. [place] a [employer]. Hurts when walking; Additional info: Lt knee pain TECHNIQUE: Imaging protocol: Magnetic resonance imaging of the left lower extremity joint without contrast. Exam focused on the knee. COMPARISON: CR XR KNEE LT 3V 09/19/2024 7:22 AM FINDINGS: Bones/joints: There is a partial-thickness chondral defect involving the articular surface medial femoral condyle just deep to the free margin of the posterior horn medial meniscus. There is also a small partial-thickness chondral defect involving the medial trochlear groove best seen in the axial plane. Lateral compartment is fairly well preserved. Medial meniscus: Unremarkable. No tear. Lateral meniscus: There appears to be a small radial tear free margin tear involving the posterior horn of the lateral meniscus only evident in the axial plane (series 3, image 19). There is some undermining of the intra-articular surface of the anterior horn with fluid without evidence of underlying tear.. Anterior cruciate ligament: Patient has undergone prior ACL repair.. ACL graft is somewhat obscured by scar tissue and chronic synovitis insinuating around the ACL and free margin of Hoffa's fat pad. No luis m tear detected. Posterior cruciate ligament: PCL is intact. Medial capsule and supporting structures: Unremarkable. No tear. Lateral capsule and supporting structures: Unremarkable. No tear. Extensor mechanism of knee: Unremarkable. No tear. Soft tissues: Minimal joint effusion in addition to the chronic synovitis and postsurgical scarring. IMPRESSION: 1. Findings suspicious for small radial tear free margin tear posterior horn lateral meniscus only demonstrated in the axial plane. 2. Partial-thickness chondral defect along the posterior aspect of the articular surface medial femoral condyle. 3. Small partial-thickness chondral defect medial trochlear groove 4. Chronic synovitis and postsurgical scarring insinuating around the ACL and free margin of Hoffa's fat pad. No compelling evidence of ACL graft tear.
== END 2024-10-03 23:59 | disposition home or self-care (01) ==
LOC: RAD 16:17
PROVIDERS: PCP Nurse Practitioner; Visit Provider Physician Assistant
DX: M25.562 Pain in left knee (principal); M23.92 Unspecified internal derangement of left knee; S89.92XA Unspecified injury of left lower leg, initial encounter
CPT/HCPCS: 73721

== ENCOUNTER 2024-10-29 10:49 | Outpatient (CLI) | payer MEDICARE, MEDICAID, SELFPAY ==
[2024-10-29 11:03] VITALS: BMI 35.4
[2024-10-29 11:27] LABS: Basophils % 0.4 % (0.1-2.0); Eosinophils # 0.1 Kmm3 (0.0-0.4); Eosinophils % 2.9 % (0.1-12.0); Hemoglobin 15.1 g/dL (14.1-18.0); Lymphocytes # 1.5 K/mm3 (0.7-4.5); Lymphocytes % 33.4 % (10-50); Mean Corpuscular HGB Conc 34.3 g/dL (31.8-35.4); Mean Corpuscular Volume 84.6 fl (80-94); Mean Platelet Volume 10.5 fl (7.4-10.4); Monocytes # 0.3 K/mm3 (0.1-1.0); Monocytes % 7.5 % (1.7-9.3); Neutrophils # 2.5 K/mm3 (1.8-7.8); Neutrophils % 55.6 % (37.0-80.0); Nucleated Red Blood Cells # 0 10^3/uL; Nucleated Red Blood Cells % 0 %; Platelet Count 185 K/mm3 (142-424); Red Cell Distribution Width 11.9 % (11.5-17.5); Red Cell Distribution Width-SD 36.1 fL; White Blood Count 4.5 K/mm3 (4.8-10.8)
[2024-10-29 11:35] LABS: Blood Urea Nitrogen 11 mg/dl (9-20); Calcium 9.1 mg/dl (8.4-10.2); Carbon Dioxide 27 mmol/L (22.0-30.0); Chloride 108 mmol/L (98-107); Creatinine Clearance Estimated 210 mL/min (50-200); Estimated Glomerular Filt Rate 114 ml/min (>60); GFR (African American) 138 ML/MIN (>60); Glucose 130 mg/dl (74-100); Sodium 139 mmol/L (136-145)
== END 2024-10-29 23:59 | disposition home or self-care (01) ==
LOC: PREOP 10:50
PROVIDERS: PCP Family Medicine; Visit Provider Orthopaedic Surgery
DX: Z01.812 Encounter for preprocedural laboratory examination (principal)
CPT/HCPCS: 80048; 85025

== ENCOUNTER 2024-11-03 13:48 | Outpatient (CLI) | payer MEDICARE, MEDICAID, SELFPAY ==
[2024-11-03 18:30] LABS: Basophils % 0.7 % (0.1-2.0); Eosinophils # 0.2 Kmm3 (0.0-0.4); Eosinophils % 2.6 % (0.1-12.0); Hematocrit 47.6 % (42.0-52.0); Hemoglobin 16.3 g/dL (14.1-18.0); Lymphocytes # 1.9 K/mm3 (0.7-4.5); Lymphocytes % 33.5 % (10-50); Mean Corpuscular HGB Conc 34.2 g/dL (31.8-35.4); Mean Corpuscular Hemoglobin 29.6 pg (27.0-31.2); Mean Corpuscular Volume 86.4 fl (80-94); Mean Platelet Volume 11.1 fl (7.4-10.4); Monocytes # 0.5 K/mm3 (0.1-1.0); Monocytes % 8.6 % (1.7-9.3); Neutrophils # 3.1 K/mm3 (1.8-7.8); Neutrophils % 54.2 % (37.0-80.0); Nucleated Red Blood Cells # 0 10^3/uL; Nucleated Red Blood Cells % 0 %; Platelet Count 205 K/mm3 (142-424); Red Blood Count 5.51 M/mm3 (4.60-6.20); Red Cell Distribution Width-SD 38.1 fL; White Blood Count 5.7 K/mm3 (4.8-10.8)
[2024-11-03 20:22] LABS: Alanine Aminotransferase 54 U/L (12-78); Albumin Level 4.7 g/dl (3.5-5.0); Albumin/Globulin Ratio 1.7 (1.1-1.8); Alkaline Phosphatase 96 U/L (38-126); Anion Gap 8.5 mEq/L (5-15); Aspartate Amino Transferase 30 U/L (17-59); Bilirubin,Total 0.5 mg/dl (0.2-1.3); Blood Urea Nitrogen 13 mg/dl (9-20); Calcium 9.9 mg/dl (8.4-10.2); Carbon Dioxide 28 mmol/L (22.0-30.0); Chloride 106 mmol/L (98-107); Estimated Glomerular Filt Rate 100 ml/min (>60); GFR (African American) 121 ML/MIN (>60); Globulin 2.7 g/dL (1.3-3.2); Glucose 84 mg/dl (74-100); Potassium 4.5 mmoL/L (3.5-5.1); Sodium 138 mmol/L (136-145); Total Protein,Serum 7.4 g/dl (6.3-8.2)
== END 2024-11-03 23:59 | disposition home or self-care (01) ==
LOC: LAB.DROPOF 11-04 09:34
PROVIDERS: PCP Family Medicine; Visit Provider Family Medicine
DX: K92.0 Hematemesis (principal)
CPT/HCPCS: 80053; 85025

== ENCOUNTER 2024-11-05 06:01 | Day surgery (SDC) | payer MEDICARE, MEDICAID, SELFPAY ==
[2024-10-29 13:50] VITALS: BMI 35.4
[2024-11-05] VITALS (10 sets, daily range): BP systolic 128–164; BP diastolic 77–99; PULSE 71–100; RESP 14–18; TEMP 36.2–36.3; O2SAT 94–97
[2024-11-05] MEDS: LACTATED RINGERS 1000ML 1,000 ML 100 ML IV (06:30)
--- NOTE | 2024-11-05 06:53 | EXP.ANES.CKL ---
[facility] Disclaimer: The information contained in this section may have been updated after the patient was seen, as this information can be updated by other users. Medical History History of fracture of nasal bone History of migraine History of syncope Tetrahydrocannabinol (THC) dependence History of bad fall Deviated septum History of fracture Back pain Asthma exacerbation Penile lesion URI (upper respiratory infection) Strain of chest wall Influenza A Anxiety Migraine Surgical History History of nasal surgery History of knee surgery History of nasal surgery History of knee surgery Family History Other Family history of cancer Family history of diabetes mellitus Social History (Updated 11/05/24 @ 06:20 by Gerda Rollins RN) Smoking Status: Current every day smoker second hand exposure: No alcohol intake: current counseling given: No substance use type: marijuana counseling given: No counseling provided: none current occupational status: employed Travel in the last 8 weeks?: None adopted: No caregiver/support person: No foster care: No household members: significant other marital status: other service: No half-way: No current occupational exposures/hazards: No Have you lived/traveled outside US in past 30 days?: No Contact w/someone who lives/traveled outside US past 30 days?: No Exposure to someone with infectious disease in past 14 days?: No Do you have a fever (greater than 100.4 F or 38 C)?: No Have you tested positive for COVID-19?: No Exposed to someone with COVID-19 in past 14 days?: No Do you have a sore throat?: No Do you have a cough?: No Do you have any weakness?: No Are you experiencing any nausea/vomitting?: No Do you have any diarrhea?: No Are you experiencing any unusual bleeding?: No Do you have any muscle aches/pain?: No Do you have any abdominal pain?: No Are you experiencing loss of taste or smell?: No [facility] Anesthesia Checklist Patient Identification Patient Identification: Arm Band and Family Structural Data Admitted From: Home Planned Operative Procedure/s: Left Knee Ats. Consent for Planned Operative Procedure(s) Verified: Yes Verified Documents: Surgical Consent and History and Physical NPO Status Verified Time NPO: 00:00 Additional verifications Patient : No Anesthesia Reactions: Yes (pt reports he woke up during surgery) Hx Blood Transfusions: No Blood Transfusion Reaction: No Cephalosporin Allergy: No Previous Colonoscopy: Yes Airway Assessment Mallampati Score:: Class II C-Spine Mobility Assessed: Yes TMJ Mobility Assessed: Yes Dentition: Good Dentition Neurological Assessment Level of Consciousness: Awake, Alert, Appropriate and Follows Commands Hx Seizures: No Numbness or tingling in extremities: No Anesthesia Plan Anesthesia Risk discussed: Yes ASA Class: II Anesthesia Type: General Preoperative Comments Pre-Operative Comments: Acid reflux. Asthma.
[2024-11-05] MEDS: CEFAZOLIN 2GM VIAL 2 GM (07:30)
[2024-11-05] MEDS: BUPIVACAINE 0.25% 30ML VIAL 75 MG (07:49)
--- NOTE | 2024-11-05 08:32 | EXP.ANES.I ---
[facility] Anesthesia Record Part I Anesthesia Record I Intake, IV Amount: 600 Hydration: Adequate Estimated blood loss (mL): 0 Urine output (mL): 0 Blood Products used (#): none Blood Pressure: 149/99 SaO2: 95 Pulse Rate: 100 Airway Patency: Patent Respiratory Rate: 14 Temperature: 97.2 F Patient is:: Drowsy and Stable Stable to PACU at:: 08:27
[2024-11-05] MEDS: ONDANSETRON 4MG/2ML VIAL 4 MG IV (08:55)
--- NOTE | 2024-11-05 11:33 | P.OP_ITS ---
Date of procedure: 11/05/24 Pre-op Diagnosis:: Left knee previous ACL reconstruction left knee lateral meniscus tear Post-op Diagnosis:: 1. Left knee full-thickness OCD lesion medial femoral condyle weightbearing surface 1 cm x 2 cm. 2. 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 Left knee tear posterior horn lateral meniscus. 4. Left knee partial tearing of previous ACL graft 5. Left knees extensive synovitis intercondylar notch and patellofemoral joint Procedure performed:: 1. Left knee arthroscopy partial lateral meniscectomy 2. Left knee arthroscopy with extensive synovectomy intercondylar notch patellofemoral joint 3. Left knee arthroscopy with debridement torn fibers ACL graft Surgeon:: Julian Davison DO Anesthesia: GETGlenn Estimated blood loss (mL): 0 Operative findings:: As above. Operative note:: Patient identified preoperatively. Left knee marked yes my initials. Transported operative suite placed upon operating bed. General anesthesia administered and airway secured. Left lower extremity prepped and draped within the knee honeycutt. Once prepped and draped final operative timeout performed to identify proper patient procedure and extremity. Everyone involved in the case agreed. There is no counter indications to beginning. Did receive preoperative antibiotics. Marking pen was used to alisha bony landmarks in the and standard portal sites. Esmarch was used to exsanguinate the extremity pneumatic tourniquet inflated to 300 mmHg. Skin knife is used to incise standard anterior lateral portal blunt with trocar was then placed in the patellofemoral joint exchange with a camera. I swept directly into the medial joint line upon sweeping the medial joint line established medial portal with help of 18-gauge spinal needle. This exchanged with a probe. Within the medial joint line there was an area of full-thickness cartilage lesion of the medial femoral condyle weightbearing surface 2 cm x 1 cm. There was extensive synovitis in the patellofemoral joint anterior compartments and significantly thickened synovium which was inflamed synovectomy extensive was performed intercondylar notch. Synovectomy was completed with a sucker shaver. Attention was then brought to the lateral joint line. Within the lateral joint line there was evidence of small area of grade IV chondromalacia lateral femoral condyle tearing of the posterior horn body of the lateral meniscus. Using combination of straight biter sucker shaver partial lateral meniscectomy was performed back to formerly [facility] rim. Attention was then brought to the intercondylar notch the ACL graft had been stretched and there was a lot of scarring and partial tearing of the ACL graft this free edge of the tear of the graft was debrided to prevent impingement on the knee. Swept into the medial and lateral gutters no pathology was seen and swept into the trochlea patellofemoral joint. The trochlea had a large full-thickness osteochondral defect present. The loose luis m cartilage on the excess edges were trimmed with a sucker shaver Synovectomy completed in the anterior compartment and patellofemoral joint. Once complete cameras removed the joint was drained local anesthesia tray of the portal sites skin closed with nylon stitch. Dressing placed from toe to thigh patient room anesthesia taken recovery in stable condition. Condition: stable Disposition: PACU Complications:: None apparent
--- NOTE | 2024-11-05 15:10 | EXP.ANES.II ---
[facility] Anesthesia Record Part II Anesthesia Record Part II Discharge Time: 08:57 Destination: Surgical Day Care (OP Surgery) PACU nurse assessment reviewed?: Yes Patient Condition:: Good Anesthesia Complications:: None Swallowing reflex intact?: Yes Airway Patency: Patent Cyanosis?: No Blood Pressure: 144/77 SaO2: 97 Respiratory Rate: 14 Pulse Rate: 81 Temperature: 97.2 F Mental Status: Alert & Oriented Pain level:: 0 Nausea and/or vomitting:: None Intake, IV Amount: 0 Hydration: Adequate
== END 2024-11-05 09:28 | disposition home or self-care (01) ==
PROVIDERS: PCP Family Medicine; Visit Provider Orthopaedic Surgery
PROC: (CPT 29870; principal; 2024-11-05 07:30)
DX: S83.282A Other tear of lateral meniscus, current injury, left knee, initial encounter (principal); M23.8X2 Other internal derangements of left knee; M94.262 Chondromalacia, left knee; K27.9 Peptic ulcer, site unspecified, unspecified as acute or chronic, without hemorrhage or perforation; F17.210 Nicotine dependence, cigarettes, uncomplicated; J45.909 Unspecified asthma, uncomplicated; Z79.899 Other long term (current) drug therapy; Z79.51 Long term (current) use of inhaled steroids
CPT/HCPCS: 29879; 29881; 96374; J0690; J1100; J1171; J1885; J2250; J2405; J3010; J7120

== ENCOUNTER 2024-12-01 10:38 | Emergency (ER) | payer MEDICARE, MEDICAID, SELFPAY ==
[2024-12-01] VITALS (9 sets, daily range): BP systolic 104–131; BP diastolic 71–91; PULSE 44–86; RESP 16–18; TEMP 36.3–37.1; O2SAT 95–98; BMI 34.1
--- NOTE | 2024-12-01 10:43 | ECG_ITS ---
APPROVED REPORT Exam: Resting ECG HR:70 bpm ECG Measurements Heart Rate 70 AXES DE 177 P 25 QRSd 92 QRS 36 QT 366 T 30 QTc 387 Conclusion SINUS RHYTHM NORMAL ECG Electronically signed by : TREVON SAUCEDA, 12/03/2024 02:20:43
--- NOTE | 2024-12-01 10:52 | XR_ITS ---
FINAL REPORT CLINICAL HISTORY: midsternal chest pain that radiates under right rib area and left chest. pt reports some increased shortness of breath. COMPARISON: 06/04/2024 FINDINGS: PA and lateral views of the chest were obtained. The cardiac and mediastinal silhouettes are within normal limits. The lungs are clear. There is no pleural effusion or pneumothorax. No acute osseous abnormality is identified. IMPRESSION: No radiographic evidence of acute cardiac or pulmonary disease. Reviewed, Interpreted and Dictated by Zarina Eden MD Transcribed by Yesenia Mendenhall Authenticated and [facility]
[2024-12-01 11:00] LABS: Basophils % 0.5 % (0.1-2.0); Eosinophils # 0.2 Kmm3 (0.0-0.4); Eosinophils % 3.1 % (0.1-12.0); Hematocrit 43.8 % (42.0-52.0); Hemoglobin 14.8 g/dL (14.1-18.0); Immature Granulocytes # 0.01 10^3uL; Immature Granulocytes % 0.2 %; Lymphocytes % 30.7 % (10-50); Mean Corpuscular HGB Conc 33.8 g/dL (31.8-35.4); Mean Corpuscular Hemoglobin 28.8 pg (27.0-31.2); Mean Corpuscular Volume 85.4 fl (80-94); Mean Platelet Volume 10.6 fl (7.4-10.4); Monocytes # 0.6 K/mm3 (0.1-1.0); Monocytes % 8.4 % (1.7-9.3); Neutrophils # 3.7 K/mm3 (1.8-7.8); Neutrophils % 57.1 % (37.0-80.0); Nucleated Red Blood Cells # 0 10^3/uL; Nucleated Red Blood Cells % 0 %; Platelet Count 221 K/mm3 (142-424); Red Blood Count 5.13 M/mm3 (4.60-6.20); Red Cell Distribution Width-SD 37.1 fL; White Blood Count 6.5 K/mm3 (4.8-10.8)
[2024-12-01] MEDS: ASPIRIN 81MG CHEWABLE TABLET 324 MG PO (11:12)
[2024-12-01] MEDS: BELLADONNA ALKALOIDS 60 ML ML PO (11:13)
[2024-12-01] MEDS: ACETAMINOPHEN 500MG TAB 1000 MG PO (11:13)
[2024-12-01] MEDS: ONDANSETRON 4MG/2ML VIAL 4 MG IV (11:13)
--- NOTE | 2024-12-01 11:18 | HMH.EDCP ---
Discharge Plan Disposition Patient Disposition: Home, Self-Care Prescriptions Prescriptions: No Action albuterol sulfate 90 mcg/actuation aerosol powdr breath activated 2 inh inhalation Q6H PRN (Reason: Asthma) rimegepant [Nurtec ODT] 75 mg tablet,disintegrating 0 mg PO NEEDED PRN (Reason: .) 0RF Rx Instructions: unknown dose and frequency omeprazole 20 mg capsule,delayed release(DR/EC) 20 mg PO DAILY Qty: 30 2RF sucralfate [Carafate] 1 gram tablet 1 g PO TID 28 Days Qty: 84 0RF hydrocodone-acetaminophen 5-325 mg tablet 1 tab PO Q4H PRN (Reason: post op pain) Qty: 30 0RF Referrals Follow up/Referrals: Ella Shrestha APRN [Primary Care Provider, Family Practice] - See instructions Francisco J Penaloza MD [Staff Physician, Cardiology] - See instructions Activity Restrictions/Add. Instructions Additional Instructions/Restrictions: At this time it was felt you are safe to be discharged home. If new or worsening symptoms please do not hesitate to return the emergency department. Please call and schedule appoint with Dr. Up soon as you are able. Clinical Impressions Clinical Impression: Chest pain Print Language Print Language: Lithuanian Discharge ED Provider: Nathan Garcia [facility] General Chief Complaint: Chest Pain Stated Complaint: CP Time Seen by Provider: 12/01/24 10:45 Mode of Arrival: Ambulatory Source of Information: Patient Description of Symptoms (Recalled from ER Triage Doc. by RN): pt presents to ED c/o chest pain. pt states he woke up at 0900 with midsternal chest pain that radiates under right rib area and left chest. pt reports some increased SOA. pt states he had miniscus surgery on November 05. History of Present Illness HPI narrative: Patient is a 29-year-old male with no pertinent past medical history who presents emergency department for evaluation of chest pain. Onset was acute, since this morning after awakening. Substernal and right-sided, does not radiate through to the back. No abdominal pain reported no trauma, no other acute complaints at this time. Please note that above description of symptoms, in this electronic medical record under categorization of recalled from ER triage doctor by RN are reflective of an initial nursing assessment, however, is not reflective of my full history and physical exam that was personally taken and clarified. Consequentially, this preceding description of symptoms, which may include the patient's categorized chief complaint in the EMR, do not reflect my personal clinical impression, and the ultimate description of history of present illness and patient stated complaints should be deferred to this section of the note. Unless stated otherwise or congruent with this section of the note, additional signs, symptoms, or incongruence should be interpreted as inaccurate with my clinical impression. Related Data Home Medications ?Medication ?Instructions ?Recorded ?Confirmed albuterol sulfate 90 mcg/actuation 2 inh inhalation Q6H PRN Asthma 11/03/24 11/20/24 breath activated powder inhaler Previous Rx's ?Medication ?Instructions ?Recorded omeprazole 20 mg capsule,delayed 20 mg PO DAILY #30 caps 11/03/24 release sucralfate 1 gram tablet (Carafate) 1 g PO TID 4 weeks #84 tabs 11/03/24 hydrocodone 5 mg-acetaminophen 325 1 tab PO Q4H PRN post op pain #30 11/05/24 mg tablet tabs Allergies Allergy/AdvReac Type Severity Reaction Status Date / Time No Known Allergies Allergy Verified 11/20/24 10:35 [facility] Disclaimer: The information contained in this section may have been updated after the patient was seen, as this information can be updated by other users. Medical History Sore throat History of fracture of nasal bone History of migraine History of syncope Tetrahydrocannabinol (THC) dependence History of bad fall Deviated septum History of fracture Back pain Asthma exacerbation Penile lesion URI (upper respiratory infection) Strain of chest wall Influenza A Anxiety Migraine Surgical History History of nasal surgery History of knee surgery History of nasal surgery History of knee surgery Family History Other Family history of cancer Family history of diabetes mellitus Social History Smoking Status: Never smoker second hand exposure: No alcohol intake: current counseling given: No substance use type: marijuana counseling given: No counseling provided: none current occupational status: employed Travel in the last 8 weeks?: None adopted: No caregiver/support person: No foster care: No household members: significant other marital status: other service: No chcf: No current occupational exposures/hazards: No Have you lived/traveled outside [place] in past 30 days?: No Contact w/someone who lives/traveled outside US past 30 days?: No Exposure to someone with infectious disease in past 14 days?: No Do you have a fever (greater than 100.4 F or 38 C)?: No Have you tested positive for COVID-19?: No Exposed to someone with COVID-19 in past 14 days?: No Do you have a sore throat?: No Do you have a cough?: No Do you have any weakness?: No Do you have any diarrhea?: No Are you experiencing any unusual bleeding?: No Do you have any muscle aches/pain?: No Do you have any abdominal pain?: No Are you experiencing loss of taste or smell?: No ROS Obtained: Yes Systems reviewed as appropriate & no additional complaints except as documented Physical Exam General General appearance: alert and in no apparent distress Head Head exam: atraumatic and normocephalic Eye Eye exam: Present PERRL and EOMI ENT ENT exam: Present mucous membranes moist Neck Neck exam: Present normal inspection Chest Chest inspection: Present normal inspection and symmetric chest wall rise Respiratory Respiratory exam: Present normal lung sounds bilaterally; Absent respiratory distress Cardiovascular Cardiovascular exam: Present regular rate and normal rhythm Abdominal Exam Abdominal exam: Present soft; Absent tenderness Extremities Exam Extremities exam: Present normal inspection and other (Symmetric bilateral radial pulses) Neurological Exam Neurological exam: Present alert Psychiatric Psychiatric exam: Present normal affect Skin Skin exam: Present warm and dry HEART Score HEART Score HEART Score assessment performed?: Yes History (anamnesis): Moderately suspicious ECG: Normal Age: <45 years Risk factors: No known risk factors Troponin: </= normal limit HEART Score: 1 Critical Care Critical Care Time Critical Care Time: No Medical Decision Making Atul Inquiry Pt receiving controlled substance: No Vital Signs Vital Signs: 12/01/24 10:38 12/01/24 11:30 12/01/24 12:00 Temperature 98.8 F Temperature Source Oral Pulse Rate 56 L 46 L Pulse Rate [Right Radial] 74 Respiratory Rate 18 Blood Pressure 119/91 H 111/78 Blood Pressure [Right Arm] 120/83 Blood Pressure Mean [Right Arm] 95 Blood Pressure Source Blood Pressure Source [Right Arm] Automatic Cuff Blood Pressure Position [Right Arm] Sitting 02 Sat by Pulse Oximetry 98 95 96 Oxygen Delivery Method Room Air Room Air Room Air 12/01/24 12:30 12/01/24 12:55 12/01/24 12:56 Temperature Temperature Source Pulse Rate 47 L 62 64 Pulse Rate [Right Radial] Respiratory Rate 16 Blood Pressure 114/75 108/78 L 108/78 L Blood Pressure [Right Arm] Blood Pressure Mean [Right Arm] Blood Pressure Source Automatic Cuff Blood Pressure Source [Right Arm] Blood Pressure Position [Right Arm] 02 Sat by Pulse Oximetry 97 96 96 Oxygen Delivery Method Room Air Room Air Room Air 12/01/24 13:00 12/01/24 14:00 Temperature Temperature Source Pulse Rate 44 L 62 Pulse Rate [Right Radial] Respiratory Rate Blood Pressure 107/77 L 104/71 L Blood Pressure [Right Arm] Blood Pressure Mean [Right Arm] Blood Pressure Source Blood Pressure Source [Right Arm] Blood Pressure Position [Right Arm] 02 Sat by Pulse Oximetry 95 97 Oxygen Delivery Method Room Air Room Air Lab Data Labs: Lab Results 12/01/24 10:50: WBC 6.5, RBC 5.13, Hgb 14.8, Hct 43.8, MCV 85.4, MCH 28.8, MCHC 33.8, RDW 12.0, Plt Count 221, MPV 10.6 H, Neut % (Auto) 57.1, Lymph % (Auto) 30.7, Sutton % (Auto) 8.4, Eos % (Auto) 3.1, Baso % (Auto) 0.5, Neut # (Auto) 3.7, Lymph # (Auto) 2.0, Sutton # (Auto) 0.6, Eos # (Auto) 0.2, Baso # (Auto) 0.0, D-Dimer 0.40, HCV Ab ALEXANDER w/Rflx PCR Qn Negative, HIV Ag/Ab Combo Qual Negative 12/01/24 11:31: Sodium 141, Potassium 4.3, Chloride 109 H, Carbon Dioxide 26, Anion Gap 10.3, BUN 12, Creatinine 0.80, Estimated Creat Clear 206, Estimated GFR 114, Est GFR ( Amer) 137, Glucose 96, Calcium 9.1, Total Bilirubin 0.4, AST 25, ALT 53, Alkaline Phosphatase 85, Troponin I < 0.01, Total Protein 7.1, Albumin 4.2, Globulin 2.9, Albumin/Globulin Ratio 1.4 12/01/24 : Troponin I < 0.01 12/01/24 10:50 12/01/24 11:31 Response Orders (Tests/Meds): ED MEDICATIONS Discontinued Medications Generic Name Dose Route Start Last Admin Trade Name Kleverq PRN Reason Stop Dose Admin Acetaminophen 1,000 mg 12/01/24 10:52 12/01/24 11:13 Acetaminophen 500mg Tab PO 12/01/24 10:53 1,000 mg ONCE ONE Administration Aspirin 324 mg 12/01/24 10:52 12/01/24 11:12 Aspirin 81mg Chewable Tablet PO 12/01/24 10:53 324 mg ONCE ONE Administration Belladonna Alkaloids 60 ml 12/01/24 10:52 12/01/24 11:13 Belladonna Alkaloids 60 Ml Ml PO 12/01/24 10:53 60 ml ONCE ONE Administration Ondansetron HCl 4 mg 12/01/24 10:52 12/01/24 11:13 Ondansetron 4mg/2ml Vial IV 12/01/24 10:53 4 mg ONCE ONE Administration ORDERS Category Date Time Status CXR 2 view (NOT portable) [XR chest 2V] Stat Exams 12/01/24 10:52 Completed CBC w/Auto Diff [Complete Blood Count Auto Diff] Stat Lab 12/01/24 10:50 Completed CMP [Comprehensive Metabolic Panel] Stat Lab 12/01/24 11:31 Completed D-Dimer Stat Lab 12/01/24 10:50 Completed HIV Combo Stat Lab 12/01/24 10:50 Completed Hepatitis C Ab Qual. W/ RFX Stat Lab 12/01/24 10:50 Completed Trop I [Troponin I] Stat Lab 12/01/24 11:31 Completed Troponin I Q3H Lab 12/01/24 Completed Troponin I Q3H Lab 12/01/24 17:00 Ordered ECG Data Tracing #1: ECG Narrative: Independently interpreted by me rate is 70, rhythm is regular, axis is normal, no ST elevation in anatomical contiguous leads, QTc 387 MDM Narrative Medical Decision Narrative: In summary patient is a 29-year-old male past medical history described above who presents emergency department for evaluation of chest pain. Patient is hemodynamically stable and nontoxic-appearing upon arrival, afebrile. Differential diagnosis includes ACS, pulmonary embolism, noncardiac chest pain, among others. Workup will be conducted with hematologic labs, two-view chest x-ray, D-dimer, EKG, serial troponins. Initial inventions include GI cocktail, Tylenol, full dose aspirin. Initial workup reviewed by [place] hematologic labs are nonactionable no significant leukocytosis or anemia PE and low risk aortic dissection excluded given D-dimer 0.4. Serial troponins undetectably low. On repeat evaluation patient continued to be well-appearing is appropriate for outpatient management at this time will be referred to cardiology clinic for lower chest pain.
--- NOTE | 2024-12-01 11:26 | PC.NURSE ---
Lab stated that blood was hemolized. Re-drawing now.
[2024-12-01 11:46] LABS: Alanine Aminotransferase 53 U/L (12-78); Albumin Level 4.2 g/dl (3.5-5.0); Albumin/Globulin Ratio 1.4 (1.1-1.8); Alkaline Phosphatase 85 U/L (38-126); Anion Gap 10.3 mEq/L (5-15); Aspartate Amino Transferase 25 U/L (17-59); Bilirubin,Total 0.4 mg/dl (0.2-1.3); Blood Urea Nitrogen 12 mg/dl (9-20); Calcium 9.1 mg/dl (8.4-10.2); Carbon Dioxide 26 mmol/L (22.0-30.0); Chloride 109 mmol/L (98-107); Creatinine Clearance Estimated 206 mL/min (50-200); Estimated Glomerular Filt Rate 114 ml/min (>60); GFR (African American) 137 ML/MIN (>60); Globulin 2.9 g/dL (1.3-3.2); Glucose 96 mg/dl (74-100); Potassium 4.3 mmoL/L (3.5-5.1); Sodium 141 mmol/L (136-145); Total Protein,Serum 7.1 g/dl (6.3-8.2)
[2024-12-01 12:00] LABS: Troponin I < 0.01 ng/ml (0.00-0.034)
[2024-12-01 13:06] LABS: HIV Combo NEGATIVE (Negative)
[2024-12-01 13:15] LABS: Hepatitis C Ab Qual. W/ RFX NEGATIVE (Negative)
--- NOTE | 2024-12-01 14:23 | PC.NURSE ---
2nd trop sent to lab
[2024-12-01 14:55] LABS: Troponin I < 0.01 ng/ml (0.00-0.034)
== END 2024-12-01 15:23 | disposition home or self-care (01) ==
PROVIDERS: Emergency Provider Emergency Medicine; PCP Family Medicine
DX: R07.9 Chest pain, unspecified (principal); R06.02 Shortness of breath; Z11.59 Encounter for screening for other viral diseases; Z11.4 Encounter for screening for human immunodeficiency virus [HIV]
CPT/HCPCS: 71046; 80053; 84484; 85025; 85378; 86803; 87389; 93005; 96374; 99284; J2405

== ENCOUNTER 2024-12-17 08:00 | Outpatient (RCR) | payer MEDICARE, MEDICAID, SELFPAY ==
--- NOTE | 2024-12-01 09:52 | HMH.PTOPEV ---
PT Outpatient Evaluation Rehab PT Outpatient Evaluation Start: 12/01/24 09:14 Freq: Status: Active Protocol: Document 12/01/24 09:14 DNAIEL (Rec: 12/01/24 09:52 DANIEL [id number]) E-signed By Bryn Canales, PT Outpatient Therapy Subjective History Subjective History Pt is a 29 yom who is referred to [facility] outpatient PT s/p L knee Arthroscopy performed on 11/05/24 due to a L meniscus tear. Pt reports that he had been dealing with L knee pain for approximately 6 months prior to the surgery. He reports that his symptoms have improved marginally since the surgery but continues to have difficulty being up on his feet for long periods, squatting, running. Pt reports that his pain levels have decreased but will have some pain after being up on his feet for long periods. 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 Chief Complaint Pain,Stiff Symptom Type Throb Symptoms Relieved By Ice,Brace/Support Symptoms Aggravated Standing,Physical Activity,Walking By Prior Functional None Limitations Current Functional Lifting,Housework,Standing,Squatting,Recreation Limitations Activity,Stairs Symptom Description Intermittent,Activity Dependent Level of pain today 0 (0-10) Pain scale - at its 0 best (0-10) Pain scale - at its 5 worst (0-10) Hip/Knee Eval Gait Observation General Gait Pattern Antalgic Gait,Decrease Weight Bear (R),Decrease Weight Observation Bear (L) Palpation Tenderness left Knee Palpation Tenderness Finding Knee Palpation 2/4 TTP to anterior knee Overall Comment MMT Hip Flexion Strength 4 Good Grade Hip Abduction 4- Good- Strength Grade Hip Adduction 4- Good- Strength Grade Hip Extension 4- Good- Strength Grade Knee Extension 2+ Poor+ Strength Grade Knee Flexion 2+ Poor+ Strength Grade ROM Knee Extension +4 Active Range of Motion (degrees) Knee Extension +2 Passive Range of Motion (degrees) Knee Flexion Active 118 Range of Motion ( degrees) Knee Flexion Passive 122 Range of Motion ( degrees) Knee ROM Limitations Soft Tissue Tightness,Pain Lower Extremity Functional Index Activities Today, do you or would you have any difficulty at all with: a.Any of your usual Moderate difficulty work, housework or school activities b. Your usual Quite a bit of difficulty hobbies, recreational or sporting activities c. Getting into or A little bit of difficulty out of the bath d. Walking between A little bit of difficulty rooms e. Putting on your A little bit of difficulty shoes or socks f. Squatting Moderate difficulty g. Lifting an object A little bit of difficulty , like a bag of groceries from the floor h. Performing light No difficulty activities around your home i. Performing heavy A little bit of difficulty activities around your home j. Getting into or A little bit of difficulty out of a car k. Walking 2 blocks Moderate difficulty l. Walking a mile Moderate difficulty m. Going up or down Moderate difficulty 10 stairs (about 1 flight of stairs) n. Standing for 1 A little bit of difficulty hour o. Sitting for 1 No difficulty hour p. Running on even Moderate difficulty ground q. Running on uneven Moderate difficulty ground r. Making sharp Extreme difficulty or unable to perform activity turns while running fast s. Hopping Moderate difficulty t. Rolling over in No difficulty bed LEFI Score Lower Extremity 50 Functional Index Score Outpatient Therapy Assessment Impairments Problems/ Palpation Tenderness,Impaired Range of Motion,Impaired Impairmments Strength,Impaired Gait Pattern,Impaired Walking, Impaired Standing,Impaired Lifting,Impaired Household Care,Impaired Stair Climbing,Impaired Squatting, Impaired Recreational Activities,Impaired Running, Subjective C/O Pain Prognosis Rehab Potential Good Comment w HEP compliance Clinical Impression Consistent with Yes Diagnosis Consistent with Meniscal Tear (O32.262S) Additional details: Pt is s/p L knee arthroscopy performed on 11/05/24 due to an acute meniscal tear. 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 increasing symptoms Improve Ability to Yes: Flight of stairs with reciprocal stepping pattern Climb Stairs Improve Ability to Yes: Return to running with proper mechanics and Run without increasing pain Improve LEFI Score Yes: >70 Decrease Subjective Yes: 0-1/10 with above assessment C/O Pain Patient to be Ind w/ Yes Advanced HEP Outpatient Therapy Plan of Care Treatment Plan May Include Therapeutic Exercise Yes Including Home Exercise Program Manual Therapy Yes Techniques Neuromuscular Re- Yes education Therapeutic Yes Activities to Return to Previous Functional/Work Level Gait Training Yes ADL/Self Care Yes Education Thermal Modalities Yes Electrical Yes Stimulation Ultrasound/ Yes Phonophoresis Iontophoresis Yes Manual Lymphatic Yes Drainage Eval/Re-Eval Yes Frequency Times per week 1-2 Duration Number of Weeks 8 Addendums This patient is a No candidate for social or vocational rehab ? Patient/Guardian Yes verbally acknowledges understanding of treatment program and consents to further treatment? Patient/Guardian Yes verbally acknowledges understanding of diagnosis, prognosis and goals for treatment? Eval Complexity PT Charges 33632 - Moderate Complexity Shoulder/Elbow Eval Shoulder Objective Measurements Elbow Objective Measurements PHYSICIAN CERTIFICATION: I certify the specified therapy services for Nathan Garcia are required, authorized, and reviewed every 30 days.
== END 2024-12-17 23:59 | disposition home or self-care (01) ==
LOC: PT 08:00
PROVIDERS: Visit Provider Orthopaedic Surgery
DX: S83.207D Unspecified tear of unspecified meniscus, current injury, left knee, subsequent encounter (principal)
CPT/HCPCS: 97110; 97162